=== PATIENT | male | born 1930 | race Caucasian/White ===

== ENCOUNTER 2021-11-27 15:54 | Observation (INO) | payer OTHER, MEDICARE, BC ==
[2021-11-27] MEDS ORDERED: Iopamidol 612 MG/ML 100 ML Bottle IV SCH (18:40)
[2021-11-27] MEDS ORDERED: Sodium Chloride 0.9% 1,000 ML IV ONE (21:00)
[2021-11-27] MEDS ORDERED: Pantoprazole 40 MG Vial ONE (22:50)
[2021-11-28] MEDS ORDERED: Sodium Chloride 0.9% 1,000 ML IV ONE (05:00)
[2021-12-22 18:44] LABS: ESTIMATED GFR 41 mL/min (>60)
[2021-12-23 21:48] LABS: ESTIMATED GFR 53 mL/min (>60)
== END 2021-11-28 13:53 | disposition home or self-care (01) ==
LOC: JP.ED 15:54 → JP.ZCENSUS 20:15
DX: K22.2 Esophageal obstruction (principal); K29.80 Duodenitis without bleeding; K20.90 Esophagitis, unspecified without bleeding; K22.89 Other specified disease of esophagus; K29.60 Other gastritis without bleeding; T18.190A Other foreign object in esophagus causing compression of trachea, initial encounter; N40.0 Benign prostatic hyperplasia without lower urinary tract symptoms; I10 Essential (primary) hypertension; E78.5 Hyperlipidemia, unspecified; I25.10 Atherosclerotic heart disease of native coronary artery without angina pectoris; E11.51 Type 2 diabetes mellitus with diabetic peripheral angiopathy without gangrene; M06.9 Rheumatoid arthritis, unspecified; Z79.82 Long term (current) use of aspirin; Z79.899 Other long term (current) drug therapy; Z88.8 Allergy status to other drugs, medicaments and biological substances; Z98.890 Other specified postprocedural states; Z87.891 Personal history of nicotine dependence; Z20.822 Contact with and (suspected) exposure to COVID-19
CPT/HCPCS: 36415; 43239; 71260; 74177; 80048; 80053; 85027; C9113; J7030; U0002; 87081; 88305